=== PATIENT | male | born 1965 | race Asian ===

== ENCOUNTER → 2017-07-19 | Outpatient (CLI) | payer BC ==
[~2017-07-19] VITALS: Ht 185.4 cm; Wt 96.1 kg
[~2017-07-19] MED LIST: AMLODIPINE BESY10 MG PO; ASPIRIN1 GM PO; AUGMENTIN PO; BACTRIM DS TABL1 TA1 PO; CHOLESTEROL MED; CIPRO PO; COLCHICINE PO; COREG3.125 MG PO; FERRO-TIME325 MG PO; FLECAINIDE ACET50 MG PO; GOUT MED; KCL PO; KEFLEX PO; KEFLEX500 MG PO; LOSARTAN POTASS50 MG PO; LOVAZA1 G PO; NORVASC PO; OMEGA 3 1,0001 EACH PO; PRAVACHOL PO; PRILOSEC; PRILOSEC OTC; PRILOSEC PO; PRILOSEC20 M1 PO; PROTONIX PO; TRILIPIX135 MG PO; TYLOX 5/500 CAP1 CAP PO; VICODIN PO; VITAMIN B12 1000 MCG; XARELTO20 MG PO
--- NOTE | ~2017-07-19 | OR ---
Unit #: [id number] #: [id number] Patient: LIZETH ROJAS [id number] [address] [address] [id number] MR#: [id number] NAME: LIZETH ROJAS ROOM: Date of Procedure: 07/19/2017 Admission Date: 07/19/2017 Surgeon: Amari Escalante M.D. : 1965 Attending Physician: Amari Escalante M.D. Referring Physician: Amari Escalante M.D. Primary Care Physician: Bakari Dorantes M.D. OPERATIVE REPORT PROCEDURE PERFORMED Direct current shock cardioversion. INDICATIONS FOR PROCEDURE Atrial fibrillation. DESCRIPTION OF PROCEDURE The patient was brought to the cardiac catheterization lab, telemetry was established, vital signs recorded and the patient was started on intravenous fluids and nasal oxygen. Following 4 mg of intravenous Versed and 100 mcg of fentanyl, DC shock cardioversion was performed using 200 joules per second of biphasic current. Rhythm converted to normal sinus, no arrhythmias were detected, and blood pressure remained normal. No complications were encountered. IMPRESSION Successful direct current shock cardioversion, atrial fibrillation converted back to normal sinus rhythm. PLAN The patient will be sent home on Pravachol 40 mg daily, Xarelto 20 mg daily, losartan 50 mg p.o. at bedtime, Coreg 37.5 mg p.o. b.i.d., and flecainide 100 mg p.o. b.i.d. with amlodipine 10 mg p.o. daily in the morning, omega-3 fatty acids 2000 mg b.i.d. Dictated by... Myriam TovarU/geovanyl TD: 07/19/2017 13:55 JOB #: [id number] Unit #: [id number] #: [id number] Patient: LIZETH ROJAS OPERATIVE REPORT Page 1 of 1 X Amari Escalante MD X PROCEDURE OPERATIVE NOTE
--- NOTE | ~2017-07-19 | EKG ---
PATIENT: LIZETH ROJAS UNIT #: [id number] Ventricular Rate: 63 BPM Atrial Rate: 150 BPM QRS Duration: 136 ms Q-T Interval: 424 ms QTC Calculation(Bezet): 433 ms Calculated R [place]: 73 degrees Calculated T [place]: 59 degrees Diagnosis Line: Atrial fibrillation Diagnosis Line: Non-specific intra-ventricular conduction block Diagnosis Line: Abnormal ECG Diagnosis Line: When compared with ECG of 22-AUG-2015 08:40, Diagnosis Line: Atrial fibrillation has replaced Sinus rhythm Diagnosis Line: Confirmed by ERI MITCHELL MD ([id number]) on 07/19/2017 Diagnosis Line: 5:01:15 PM INTERPRETING MD: STEPHEN BERNARDO
[2017-07-19 09:08] LABS: HEMATOCRIT 52.3 % (38.0-50.0); HEMOGLOBIN 17.8 gm/dL (13.0-16.0); MEAN CELL VOLUME 86.5 FL (83-96); MEAN CORPUSCULAR HEMOGLOBIN 29.3 PG (28-34); MEAN CORPUSCULAR HGB CONC 33.9 g/dL (30-36); MEAN PLATELET VOLUME 7.6 FL (6.5-11.5); RED BLOOD COUNT 6.05 X10e (3.90-5.60); WHITE BLOOD COUNT 5.1 X10e3 (4.0-10.5)
[2017-07-19 09:25] LABS: INR 1.2; PARTIAL THROMBOPLASTIN TIME 38.1 SECONDS (23.5-31.3); PROTHROMBIN TIME (PATIENT) 13.4 SECONDS (10.0-11.7)
[2017-07-19 09:33] LABS: BUN/CREATININE RATIO 12.5; CALCIUM SERUM 9.1 mg/dL (8.4-10.2); CREATININE SERUM 0.8 mg/dL (0.6-1.4); GLOM FILT RATE Estimated 104.9 mL/min (>60); POTASSIUM 5.1 mmol/L (3.5-5.1)
== END | disposition home or self-care (01) ==
LOC: CCVL 08:28
PROVIDERS: Internal Medicine Cardiovascular Disease
DX: I48.91 Unspecified atrial fibrillation (principal); I10 Essential (primary) hypertension; K21.9 Gastro-esophageal reflux disease without esophagitis; E78.00 Pure hypercholesterolemia, unspecified; Z79.899 Other long term (current) drug therapy; Z88.8 Allergy status to other drugs, medicaments and biological substances
CPT/HCPCS: 36415; 80048; 85027; 85610; 85730; 92960; 93005; 99152; J0461; J2250; J2310; J3010